=== PATIENT | female | born 1965 ===

== ENCOUNTER 2023-07-31 14:00 | Outpatient (RCR) | payer MEDICARE, SELFPAY | END 2023-08-01 23:59 | disposition home or self-care (01) | LOC: PRC 14:00 | PROVIDERS: PCP Internal Medicine Pulmonary Disease; Referring Provider Student in an Organized Health Care Education/Training Program; Visit Provider Student in an Organized Health Care Education/Training Program | DX: J44.9 Chronic obstructive pulmonary disease, unspecified (principal) | CPT/HCPCS: 94626 ==

== ENCOUNTER 2023-08-30 14:00 | Outpatient (RCR) | payer MEDICARE, SELFPAY | END 2023-08-31 23:59 | disposition home or self-care (01) | LOC: PRC 14:00 | PROVIDERS: PCP Internal Medicine Pulmonary Disease; Referring Provider Student in an Organized Health Care Education/Training Program; Visit Provider Student in an Organized Health Care Education/Training Program | DX: J44.9 Chronic obstructive pulmonary disease, unspecified (principal) | CPT/HCPCS: 94626 ==

== ENCOUNTER 2023-09-27 14:00 | Outpatient (RCR) | payer MEDICARE, SELFPAY | END 2023-10-01 23:59 | disposition home or self-care (01) | LOC: PRC 14:00 | PROVIDERS: PCP Internal Medicine Pulmonary Disease; Referring Provider Student in an Organized Health Care Education/Training Program; Visit Provider Student in an Organized Health Care Education/Training Program | DX: J44.89 Other specified chronic obstructive pulmonary disease (principal) | CPT/HCPCS: 94626 ==

== ENCOUNTER 2023-10-18 14:00 | Outpatient (RCR) | payer MEDICARE, SELFPAY | END 2023-11-01 23:59 | disposition home or self-care (01) | LOC: PRC 14:00 | PROVIDERS: PCP Internal Medicine Pulmonary Disease; Referring Provider Student in an Organized Health Care Education/Training Program; Visit Provider Student in an Organized Health Care Education/Training Program | DX: J44.9 Chronic obstructive pulmonary disease, unspecified (principal) | CPT/HCPCS: 94626 ==